=== PATIENT | male | born 1960 | race Hispanic/Latino ===

== ENCOUNTER 2017-03-19 13:41 | Emergency (ER) | payer OTHER ==
[2017-03-19 13:48] VITALS: BMI 31.0
[2017-03-19] MEDS ORDERED: Morphine 4 mg/ml ISec IVP STA (14:14)
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
[2017-03-19 15:22] LABS: BASO # 0.02 K/mm3 (0.0-2.0); BASO % 0.1 % (0.0-3.0); EOS # 0.4 (0.0-0.7); EOS % 2.3 % (1.5-5.0); GRAN % 80.3 % (50.0-68.0); HEMATOCRIT 42.1 % (42.0-52.0); LYMPH # 2.1 (1.2-3.4); LYMPH % 12.7 % (22.0-35.0); MEAN CELL VOLUME 87.7 fl (80.0-105.0); MEAN CORPUSCULAR HGB CONC 34.2 g/dl (31.0-37.0); MEAN PLATELET VOLUME 9.8 fl (7.0-11.0); MONO # 0.7 (0.1-0.6); MONO % 4.6 % (1.0-6.0); RED CELL DISTRIBUTION WIDTH 14.3 % (11.5-14.5); WHITE BLOOD COUNT 16.2 10^3/ul (4.5-11.0)
[2017-03-19 15:40] LABS: ALB/GLOB RATIO 1.6 (1.1-1.8); ALKALINE PHOSPHATASE 74 U/L (38-126); ALT/SGPT 40 U/L (7-56); AST/SGOT 50 U/L (17-59); BILIRUBIN,TOTAL 0.6 mg/dL (0.2-1.3); BLOOD UREA NITROGEN 16 mg/dL (7-21); CALCIUM 9.8 mg/dL (8.4-10.5); CARBON DIOXIDE 30 mmol/L (21-33); CHLORIDE 104 mmol/L (98-107); GFR AFRICAN-AMERICAN > 60; GLUCOSE,RANDOM 101 mg/dL (70-110); POTASSIUM 3.8 mmol/L (3.6-5.0); SODIUM 144 mmol/L (132-148)
[2017-03-19 15:52] LABS: TROPONIN I < 0.01 ng/mL
[2017-03-19 15:59] LABS: INR 1.14 (0.93-1.08); PARTIAL THROMBOPLASTIN TIME 25.6 Seconds (25.1-36.5)
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
[2017-03-19] MEDS ORDERED: HYDROmorphone 1 mg/ml ISec IVP STA ×2 (16:17→19:46)
[2017-03-19] MEDS ORDERED: Iohexol 350 MG/100 ML VIAL ONE (17:22)
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
--- NOTE | 2017-03-19 20:40 | CARD ---
APPROVED REPORT EKG Measurement Heart [id number] ME [id number] <Conclusion> Poor data quality, interpretation may be adversely affected Normal sinus rhythm Normal ECG
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
[2017-03-19] MEDS ORDERED: HYDROmorphone 2 mg/ml ISec IVP STA (21:55)
[2017-03-19 22:14] VITALS: O2SAT 99
[2017-03-20 00:22] VITALS: BP 130/72; PULSE 84; RESP 16; TEMP 98.3
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
--- NOTE | 2017-03-20 09:12 | RAD ---
PROCEDURE: Right Hip Radiographs. HISTORY: pain COMPARISON: None. FINDINGS: BONES: Normal. No fracture. JOINTS: Normal. SOFT TISSUES: Normal. OTHER FINDINGS: Contrast from CT excreted into urinary bladder and distal left ureter. IMPRESSION: Normal radiographs of right hip.
== END 2017-03-20 00:22 | disposition short-term general hospital (02) ==
LOC: ED 13:41
DX: I10 Essential (primary) hypertension (principal); S22.41XA Multiple fractures of ribs, right side, initial encounter for closed fracture; S42.101A Fracture of unspecified part of scapula, right shoulder, initial encounter for closed fracture; V29.49XA Motorcycle driver injured in collision with other motor vehicles in traffic accident, initial encounter; Y92.410 Unspecified street and highway as the place of occurrence of the external cause
CPT/HCPCS: 70450; 71010; 71260; 72125; 73030; 73502; 74177; 80053; 82550; 82553; 83615; 84484; 85025; 85610; 85730; 93005; 96374; 96375; 96376; 99285; J1170; J2270; J2405; Q9967